=== PATIENT | female | born 1955 | race Caucasian/White ===

== ENCOUNTER 2021-11-02 00:44 | Inpatient (IN) | payer MEDICARE, OTHER ==
[~2021-11-02] VITALS: Ht 167.6 cm; Wt 72.6 kg
[2021-11-02 01:30] VITALS: BP 87/51
[2021-11-02] MEDS ORDERED: BLOOD SUGAR DIAGNOSTIC 1 EACH STRIP IN ONE (02:00)
[2021-11-02] MEDS ORDERED: MAG HYDROX/AL HYDROX/SIMETH 30 ML UDC PO PRN (02:00)
[2021-11-02] MEDS ORDERED: MAGNESIUM HYDROXIDE 30 ML UDC PO PRN (02:00)
--- NOTE | 2021-11-02 02:27 | NUR ---
GPS RN ADMITTING NOTES: PATIENT ARRIVED THIS UNIT ON A STRETCHER WITH 2 EMT ESCORT. PATIENT IS ON A 5150 HOLD FOR DTS. HOLD WAS PLACED ON 11/01/21 AT 1410. PER HOLD, PATIENT HAS SI WITH A PLAN TO BUY A GUN AND KILL HERSELF. UPON FACE TO FACE EVALUATION, PATIENT IS A/O X3, APPEARS DEPRESSED, FLAT AFFECT,WITHDRAWN, GUARDED, ANXIOUS, COOPERATIVE, SLEEPY AND TIRED. PATIENT [id number]/DL. SKIN ASSESSMENT DONE/SKIN INTACT. PATIENT REFUSED PNEUMONIA VACCINE, PER PATIENT SHE IS VACCINATED BUT FORGOT WHEN. PATIENT IS FULLY VACCINATED WITH MODERNA. PATIENT BELONGINGS WERE INVENTORIED AND CONTRABAND REMOVED AND PLACED IN SUPERVISORS SAFE. NO S/S OF DISTRESS, RESPIRATION EVEN AND UNLABORED WITH EQUAL RISE AND FALL OF THE CHEST, ON ROOM AIR. PATIENT IS UNDER THE PSYCHIATRIC CARE OF DR SIMS AND MEDICAL CARE OF [facility]. PATIENT IS ORIENTED TO STAFF AND UNIT. PATIENT RIGHTS BOOKLET AND PRESCRIPTION MEDICATION GUIDE GIVEN TO PATIENT. PATIENT OFFERED FLUID AND SNACKS TOLERATED. ALL PATIENT CARE NEEDS HAVE BEEN MET ANTICIPATED. PATIENT HAS NO NEED AT THIS TIME. BED IN LOW LOCKED POSITION, SIDE RAILS UP X2 FOR SAFETY. WILL CONTINUE TO MONITOR Q15 FOR SAFETY, MOOD AND BEHAVIOR.
[2021-11-02] MEDS ORDERED: AMLO2.5T2 PO (02:43)
[2021-11-02] MEDS ORDERED: CLON0.5T4 PO (02:43)
[2021-11-02] MEDS ORDERED: CALC-1180 PO (02:43)
[2021-11-02] MEDS ORDERED: DOCU-141 PO (02:43)
[2021-11-02] MEDS ORDERED: GABA-532 PO (02:43)
[2021-11-02] MEDS ORDERED: FLUO40CA8 PO (02:43)
[2021-11-02] MEDS ORDERED: LEVO25TA7 PO (02:43)
[2021-11-02] MEDS ORDERED: LAMO200T2 PO (02:43)
[2021-11-02] MEDS ORDERED: APIX5TAB4 PO (02:43)
[2021-11-02 03:30] VITALS: BP 87/51
[2021-11-02] MEDS ORDERED: ESTR10TA VG (03:30)
[2021-11-02] MEDS ORDERED: PROP20TA7 PO (03:30)
--- NOTE | 2021-11-02 06:57 | NUR ---
GPS RN NOTES: CALLED PATIENT SISTER JOSE C YAN [phone] AT [phone] AND LEFT A MESSAGE. WILL ENDORSE TO AM SHIFT TO FOLLOW UP.
--- NOTE | 2021-11-02 07:04 | NUR ---
GPS RN NOTES: PATIENT SISTER JOSE C YAN @ [phone] INFORMED OF PATIENT ADMISSION
[2021-11-02 08:00] VITALS: BP 94/51
[2021-11-02] MEDS: CALCIUM CARB 600MG /VIT D 1 EACH TABLET PO SCH ×2 (09:29→16:52)
[2021-11-02] MEDS: DOCUSATE SODIUM 100 MG CAPSULE PO SCH (09:29)
[2021-11-02] MEDS: FLUOXETINE HCL 20 MG CAPSULE PO SCH (09:30)
[2021-11-02] MEDS: APIXABAN 5 MG TABLET PO SCH ×2 (09:31→21:28)
[2021-11-02] MEDS: LEVOTHYROXINE SODIUM 25 MCG TABLET PO SCH (09:31)
--- NOTE | 2021-11-02 10:43 | NUR ---
ALIN Initial Discharge Plan: Pt currently resides at home located at [address] [place] [address]; ([phone]). Pt stated that she will be moving in with her sister. ALIN will work with the pt, MD, and treatment team to help coordinate appropriate discharge.
--- NOTE | 2021-11-02 10:44 | NUR ---
ALIN Clinical Note: Pt placed on a 5150 hold for danger to self. Pt brought to the hospital because she had a plan to go buy a gun. Pt currently resides at home located at [address] [place] [address]; ([phone]). Pt stated that she will be moving in with her sister.
--- NOTE | 2021-11-02 10:47 | NUR ---
SW Family Contact: SW attempted to contact pt's sister Manny ([phone]) to gather collateral and discuss treatment plan. Unavailable and SW left a voicemail.
[2021-11-02] MEDS: LORAZEPAM 0.5 MG TABLET PO PRN ×2 (15:01→20:39)
--- NOTE | 2021-11-02 15:01 | NUR ---
GPS RN NOTE: PATIENT RESTLESS AND EXTREMELY ANXIOUS ATIVAN 0.5 MG PO PRN GIVEN PER ORDER WILL CONTINUE MONITORING
[2021-11-02 16:00] VITALS: BP 141/84
--- NOTE | 2021-11-02 19:30 | NUR ---
GPS RN NOTE, RECEIVED PATIENT AWAKE AND IN BED, NO S/S OR COMPLAINTS OF PAIN AT THIS TIME. PATIENT IS DISPLAYING NO S/S OF APPARENT DISTRESS AT THIS TIME. PATIENT BREATHING IS UNLABORED WITH EQUAL RISE AND FALL OF THE CHEST. PATIENT IS ALERT AND ORIENTED X 3 ON ROOM AIR WITH A SPO2 98%. PATIENT IS COMPLIANT WITH MEDICATIONS, ANXIOUS AT TIMES, PARANOID, NEEDY, HYPERVERBAL, FOCUSED ON DISCHARGE, AND COOPERATIVE. PATIENT DENIES SUICIDAL AND HOMICIDAL IDEATIONS AT THIS TIME. PATIENT ASSISTED WITH TURNING AND REPOSITIONING Q2HR AND PRN FOR COMFORT AND CIRCULATION. PATIENT HAS NO NEEDS AT THIS TIME. PATIENT EDUCATED ON THE USE OF THE CALL JUAREZ. PATIENT BED SIDE RAILS UP X 2 FOR SAFETY. PATIENT BED IS LOCKED, LOW, WITH BED ALARM ON. WILL CONTINUE TO MONITOR THIS PATIENT Q15 MINUTES WITH THE HELP OF STAFF TO MAINTAIN SAFETY.
[2021-11-02 20:00] VITALS: BP 126/78
--- NOTE | 2021-11-02 20:40 | NUR ---
GPS RN NOTE, PATIENT HAS A COMPLAINT OF FEELING ANXIOUS AND IS REQUESTING ATIVAN AT THIS TIME. PATIENT VITAL SIGNS ARE STABLE. GAVE ATIVAN 0.5MG PO Q6HR PRN ORDERED. WILL REASSESS FOR ANXIETY AND I WILL CONTINUE TO MONITOR THIS PATIENT WITH THE HELP OF STAFF.
[2021-11-02] MEDS: AMLODIPINE BESYLATE 2.5 MG TABLET PO SCH (21:31)
[2021-11-02] MEDS: ACETAMINOPHEN 325 MG TABLET PO PRN (21:45)
--- NOTE | 2021-11-02 21:47 | NUR ---
GPS RN NOTE, PATIENT HAS A COMPLAINT OF BILATERAL KNEE PAIN AT 7 OUT OF 10 ON THE PAIN SCALE AND IS REQUESTING TYLENOL AT THIS TIME. PATIENT VITAL SIGNS ARE STABLE. GAVE TYLENOL 650MG PO Q6HR PRN ORDERED. WILL REASSESS PAIN AND I WILL CONTINUE TO MONITOR THIS PATIENT WITH THE HELP OF STAFF.
[2021-11-02] MEDS ORDERED: LamoTRIgine 100 MG TABLET PO SCH (22:00)
[2021-11-02] MEDS ORDERED: GABAPENTIN 100 MG CAPSULE PO SCH ×2 (22:00)
[2021-11-03] MEDS: TEMAZEPAM 7.5 MG CAPSULE PO PRN (02:41)
--- NOTE | 2021-11-03 02:43 | NUR ---
GPS RN NOTE, PATIENT HAS A COMPLAINT OF NOT BEING ABLE TO SLEEP AND IS REQUESTING RESTORIL AT THIS TIME. PATIENT VITAL SIGNS ARE STABLE. GAVE RESTORIL 7.5MG PO HS PRN ORDERED. WILL REASSESS FOR INSOMNIA AND I WILL CONTINUE TO MONITOR THIS PATIENT WITH THE HELP OF STAFF.
[2021-11-03 07:54] LABS: CHOLESTEROL 198 mg/dL (<200); HDL CHOLESTEROL 44 mg/dL (40-60); LDL 123 mg/dL (0-99); TRIGLYCERIDES 153 mg/dL (30-150)
[2021-11-03 08:00] VITALS: BP 138/76
--- NOTE | 2021-11-03 08:25 | NUR ---
RN-NOTES PATIENT C/O CHEST PAIN, BP OF 138/76,P87,R 16. NITRO 0.4MG SUB. GIVEN PRN ORDER. WILL CONT. MONITORING.
[2021-11-03] MEDS ORDERED: NITROGLYCERIN 0.4 MG/TAB BOTTLE SL PRN (08:30)
[2021-11-03] MEDS: LORAZEPAM 0.5 MG TABLET PO PRN ×2 (08:33→20:33)
[2021-11-03] MEDS: DOCUSATE SODIUM 100 MG CAPSULE PO SCH (08:33)
[2021-11-03] MEDS: CALCIUM CARB 600MG /VIT D 1 EACH TABLET PO SCH ×2 (08:33→17:04)
[2021-11-03] MEDS: LEVOTHYROXINE SODIUM 25 MCG TABLET PO SCH (08:33)
[2021-11-03] MEDS: FLUOXETINE HCL 20 MG CAPSULE PO SCH (08:33)
--- NOTE | 2021-11-03 08:35 | NUR ---
RN-NOTES PATIENT IN THE NURSE STATION VERY ANXIOUS,INTRUSIVE ,ANGRY AND ARGUING WITH THE STAFF AND MD , REDIRECTED AND ATIVAN 0.5MG P.O GIVEN PRN ORDER. WILL CONT. MONITORING FOR SAFETY AND BEHAVIOR.
[2021-11-03] MEDS: APIXABAN 5 MG TABLET PO SCH ×2 (08:37→21:54)
--- NOTE | 2021-11-03 08:45 | NUR ---
RN-NOTES PATIENT STATED HER CHEST PAIN WAS IMPROVED AFTER THE NITRO GLYCERIN GIVEN.
[2021-11-03 09:37] LABS: ALBUMIN 4.5 g/dL (3.4-5.0); BILIRUBIN,TOTAL 0.2 mg/dL (0.2-1.0); CALCIUM, SERUM 9.1 mg/dL (8.5-10.1); CREATININE 0.8 mg/dL (0.6-1.3); POTASSIUM 4.6 mmol/L (3.5-5.1); TOTAL PROTEIN, SERUM 8.2 g/dL (6.4-8.2)
--- NOTE | 2021-11-03 09:45 | NUR ---
RN-NOTES PATIENT LYING IN BED IN THE ROOM,AWAKE,ALERT X3,CALM,NO ACUTE DISTRESS NOTED.
[2021-11-03] MEDS: ACETAMINOPHEN 325 MG TABLET PO PRN ×2 (09:49→20:33)
--- NOTE | 2021-11-03 09:51 | NUR ---
RN-NOTES PATIENT C/O HEADACHE AND REQUESTING TYLENOL, TYLENOL 650MG P.O GIVEN PRN ORDER. WILL CONT. MONITORING.
--- NOTE | 2021-11-03 10:50 | NUR ---
RN-NOTES PATIENT LAYING IN BED AWAKE,ALERT X3 .NO ACUTE DISTRESS NOTED.STATED TYLENOL HELPS HER HEADACHE.
[2021-11-03 16:00] VITALS: BP 131/79
--- NOTE | 2021-11-03 18:44 | NUR ---
RN-NOTES PATIENT IS VISIBLE IN THE UNIT A/O X3,CALM AND COOPERATIVE AT THIS TIME. ABLE TO MAKE NEEDS KNOWN TO THE STAFF.COMPLIANT WITH MEDICATIONS,NO ACUTE DISTRESS NOTED. AMBULATORY STEADY GAIT. ALL NEEDS ATTENDED AND MET.WILL CONT. MONITORING FOR SAFETY AND BEHAVIOR. WILL ENDORSE TO INCOMING NURSE FOR CONTINUITY OF CARE.
[2021-11-03] MEDS: GABAPENTIN 100 MG CAPSULE PO SCH (21:52)
[2021-11-03] MEDS: LamoTRIgine 100 MG TABLET PO SCH (21:52)
[2021-11-03] MEDS: AMLODIPINE BESYLATE 2.5 MG TABLET PO SCH (21:53)
[2021-11-03] MEDS ORDERED: GABAPENTIN 100 MG CAPSULE PO SCH (22:00)
[2021-11-04] MEDS: LORAZEPAM 0.5 MG TABLET PO PRN (04:01)
[2021-11-04] MEDS: ACETAMINOPHEN 325 MG TABLET PO PRN ×2 (04:13→18:00)
[2021-11-04] MEDS: HYDROCODONE/APAP 5/325MG TABLET PO PRN ×2 (04:52→10:58)
--- NOTE | 2021-11-04 04:55 | NUR ---
GPS RN NOTE, PATIENT HAS A COMPLAINT OF BILATERAL KNEE PAIN AT 8 OUT OF 10 ON THE PAIN SCALE AND IS REQUESTING SOMETHING STRONGER THAN TYLENOL AT THIS TIME. PATIENT VITAL SIGNS ARE STABLE. PAGED [facility] AND IN FORMED AKASH GRAVES OF MY FINDINGS. AKASH GRAVES ORDERED NORCO 5-325 1 TAB PO Q6HR PRN. GAVE NORCO 5-325 1 TAB PO Q6HR PRN. WILL REASSESS PAIN AND I WILL CONTINUE TO MONITOR THIS PATIENT WITH THE HELP OF STAFF.
[2021-11-04] MEDS: LEVOTHYROXINE SODIUM 25 MCG TABLET PO SCH (07:00)
[2021-11-04 08:00] VITALS: BP 99/59
[2021-11-04] MEDS: CALCIUM CARB 600MG /VIT D 1 EACH TABLET PO SCH ×2 (09:00→17:00)
[2021-11-04] MEDS: FLUOXETINE HCL 20 MG CAPSULE PO SCH (09:00)
[2021-11-04] MEDS: DOCUSATE SODIUM 100 MG CAPSULE PO SCH (09:00)
[2021-11-04] MEDS: APIXABAN 5 MG TABLET PO SCH ×2 (09:00→22:03)
--- NOTE | 2021-11-04 10:58 | NUR ---
PT C/O BACK PAIN NORCO 5/325 1 TAB GIVEN WILL CONTINUE TO MONITOR.
[2021-11-04 16:05] VITALS: BP 128/77
--- NOTE | 2021-11-04 16:49 | NUR ---
PATIENT 14 DAYS HOLD COPY GIVEN TO PATIENT .PATIENT ACCEPT IT .WILL CONTINUE TO MONITOR FOR SAFETY Q15 MINUTES .
--- NOTE | 2021-11-04 18:00 | NUR ---
PT C/O BACK PAIN TYLENOL 650MG X 1 TAB GIVEN WILL CONTINUE TO MONITOR.
--- NOTE | 2021-11-04 19:30 | NUR ---
PATIENT IS DISPLAYING NO S/S OF APPARENT DISTRESS AT THIS TIME. PATIENT BREATHING IS UNLABORED WITH EQUAL RISE AND FALL OF THE CHEST. PATIENT IS ALERT AND ORIENTED X 3 ON ROOM AIR WITH A SPO2 99%. PATIENT IS COMPLIANT WITH MEDICATIONS, ANXIOUS AT TIMES, PARANOID, NEEDY, HYPERVERBAL, FOCUSED ON DISCHARGE, AND COOPERATIVE. PATIENT DENIES SUICIDAL AND HOMICIDAL IDEATIONS AT THIS TIME. PATIENT ASSISTED WITH TURNING AND REPOSITIONING Q2HR AND PRN FOR COMFORT AND CIRCULATION. PATIENT HAS NO NEEDS AT THIS TIME. PATIENT EDUCATED ON THE USE OF THE CALL JUAREZ. PATIENT BED SIDE RAILS UP X 2 FOR SAFETY. PATIENT BED IS LOCKED, LOW, WITH BED ALARM ON. WILL CONTINUE TO MONITOR THIS PATIENT Q15 MINUTES WITH THE HELP OF STAFF TO MAINTAIN SAFETY.
[2021-11-04 20:08] VITALS: BP 139/80
[2021-11-04] MEDS: LamoTRIgine 100 MG TABLET PO SCH (22:02)
[2021-11-04] MEDS: GABAPENTIN 100 MG CAPSULE PO SCH (22:02)
[2021-11-04] MEDS: AMLODIPINE BESYLATE 2.5 MG TABLET PO SCH (22:02)
[2021-11-05] MEDS: TEMAZEPAM 7.5 MG CAPSULE PO PRN (01:21)
--- NOTE | 2021-11-05 01:23 | NUR ---
GPS RN NOTE, PATIENT HAS A COMPLAINT OF NOT BEING ABLE TO SLEEP AND IS REQUESTING RESTORIL AT THIS TIME. PATIENT VITAL SIGNS AR STABLE. GAVE RESTORIL 7.5MG PO HS PRN ORDERED. WILL REASSESS FOR INSOMNIA AND I WILL CONTINUE TO MONITOR THIS PATIENT WITH THE HELP OF STAFF.
[2021-11-05 08:00] VITALS: BP 114/83
[2021-11-05] MEDS: LEVOTHYROXINE SODIUM 25 MCG TABLET PO SCH (08:49)
[2021-11-05] MEDS: CALCIUM CARB 600MG /VIT D 1 EACH TABLET PO SCH ×2 (08:49→16:58)
[2021-11-05] MEDS: DOCUSATE SODIUM 100 MG CAPSULE PO SCH (08:49)
[2021-11-05] MEDS: FLUOXETINE HCL 20 MG CAPSULE PO SCH (08:49)
[2021-11-05] MEDS: APIXABAN 5 MG TABLET PO SCH ×2 (08:54→21:26)
--- NOTE | 2021-11-05 09:36 | NUR ---
RN-CO: PATIENT IS VISIBLE IN THE UNIT, WITH RESTLESSNESS. SHE IS PARANOID AND THINKING ABOUT THE FBI IS TRYING TO FOLLOW HER. SHE NEEDS REDIRECTION BUT SHE TOOK HER MEDICATIONS. I WILL CONTINUE TO MONITOR.
[2021-11-05 16:00] VITALS: BP 104/69
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
[2021-11-05 20:00] VITALS: BP 100/60
[2021-11-05] MEDS: ACETAMINOPHEN 325 MG TABLET PO PRN (21:23)
[2021-11-05] MEDS: LamoTRIgine 100 MG TABLET PO SCH (21:24)
[2021-11-05] MEDS: GABAPENTIN 100 MG CAPSULE PO SCH (21:24)
--- NOTE | 2021-11-05 21:35 | NUR ---
GPS RN NOTES: PATIENT C/O KNEE PAIN. TYLENOL 650MG GIVEN PO AT 2122. WILL CONTINUE TO MONITOR.
--- NOTE | 2021-11-05 21:55 | NUR ---
GPS RN NOTES: WEEKLY SKIN ASSESSMENT DONE, SKIN INTACT.
[2021-11-05] MEDS: AMLODIPINE BESYLATE 2.5 MG TABLET PO SCH (22:00)
[2021-11-05] MEDS: HYDROCODONE/APAP 5/325MG TABLET PO PRN (23:49)
--- NOTE | 2021-11-05 23:51 | NUR ---
GPS RN NOTES: PATIENT C/O BILATERAL KNEE PAIN. NORCO 5MG/325MG GIVEN PO AT 2349. WILL CONTINUE TO MONITOR.
--- NOTE | 2021-11-06 06:40 | NUR ---
GPS RN CLOSING NOTES: PATIENT IS CURRENTLY SLEEPING. PATIENT SLEPT 7HRS THIS SHIFT. NO S/S OF DISTRESS. RESPIRATION EVEN AND UNLABORED WITH EQUAL RISE AND FALL OF THE CHEST, ON ROOM AIR. ALL PATIENT CARE NEEDS HAVE BEEN MET ANTICIPATED. WILL CONTINUE TO MONITOR Q15 FOR SAFETY, MOOD AND BEHAVIOR AND ENDORSE TO AM SHIFT.
[2021-11-06] MEDS: LEVOTHYROXINE SODIUM 25 MCG TABLET PO SCH (07:21)
[2021-11-06 08:00] VITALS: BP 126/72
[2021-11-06] MEDS: FLUOXETINE HCL 20 MG CAPSULE PO SCH (09:52)
[2021-11-06] MEDS: DOCUSATE SODIUM 100 MG CAPSULE PO SCH (09:52)
[2021-11-06] MEDS: CALCIUM CARB 600MG /VIT D 1 EACH TABLET PO SCH ×2 (09:52→17:51)
[2021-11-06] MEDS: APIXABAN 5 MG TABLET PO SCH ×2 (09:57→21:39)
--- NOTE | 2021-11-06 10:53 | NUR ---
Neighbor Contact: With patient's permission, she allowed this aligner typewriter to contact her neighbor Last ([phone]). SW attempted to contact and was unavailable. SW left a voicemail.
--- NOTE | 2021-11-06 13:56 | NUR ---
ALIN Family Contact: SW spoke with pt's step sister Manny ([phone]) to gather collateral. She stated that she is pt's step sister. She reported that she currently has pt's items and car at home and that it is all safe. She reported that she is unsure if pt has an existing apartment.
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
[2021-11-06 16:00] VITALS: BP 115/59
[2021-11-06] MEDS: ACETAMINOPHEN 325 MG TABLET PO PRN (17:51)
--- NOTE | 2021-11-06 19:52 | NUR ---
GPS RN OPENING NOTES: RECEIVED PATIENT IN BED, AWAKE, A/O X2-3. APPEARS DEPRESSED, PASSIVE, GUARDED, DISORGANIZED. PATIENT ENCOURAGED TO VERBALIZE FEELINGS. PATIENT REQUESTED SHE WANTS TO SHOWER. PATIENT ASSISTED TO SHOWER WITH ASSISTANCE FROM RECREATION OFFICER. NO S/S OF DISTRESS. RESPIRATION EVEN AND UNLABORED WITH EQUAL RISE AND FALL OF THE CHEST, ON ROOM AIR. OFFERED FLUID AND SNACKS TOLERATED. BED IN LOW LOCKED POSITION, CALL JUAREZ WITHIN REACH. WILL CONTINUE TO MONITOR Q15 FOR MOOD, SAFETY AND BEHAVIOR.
[2021-11-06 20:00] VITALS: BP 122/68
[2021-11-06] MEDS: LamoTRIgine 100 MG TABLET PO SCH (21:39)
[2021-11-06] MEDS: GABAPENTIN 100 MG CAPSULE PO SCH (21:39)
[2021-11-06] MEDS: AMLODIPINE BESYLATE 2.5 MG TABLET PO SCH (21:40)
[2021-11-06] MEDS: TEMAZEPAM 7.5 MG CAPSULE PO PRN (22:57)
--- NOTE | 2021-11-06 23:01 | NUR ---
GPS RN NOTES: PATIENT REQUESTED FOR SLEEP MEDICATION. RESTORIL 7.4MG GIVEN PO AT 2257. WILL CONTINUE TO MONITOR.
--- NOTE | 2021-11-07 07:07 | NUR ---
GPS RN CLOSING NOTES: PATIENT IS CURRENTLY SLEEPING. PATIENT SLEPT 4HRS THIS SHIFT. NO S/S OF DISTRESS. RESPIRATION EVEN AND UNLABORED WITH EQUAL RISE AND FALL OF THE CHEST, ON ROOM AIR. ALL PATIENT CARE NEEDS HAVE BEEN MET ANTICIPATED. WILL CONTINUE TO MONITOR Q15 FOR SAFETY, MOOD AND BEHAVIOR AND ENDORSE TO AM SHIFT.
[2021-11-07] MEDS: LEVOTHYROXINE SODIUM 25 MCG TABLET PO SCH (07:51)
[2021-11-07 08:00] VITALS: BP 135/88
[2021-11-07] MEDS: FLUOXETINE HCL 20 MG CAPSULE PO SCH (08:09)
[2021-11-07] MEDS: CALCIUM CARB 600MG /VIT D 1 EACH TABLET PO SCH ×2 (08:09→16:24)
[2021-11-07] MEDS: DOCUSATE SODIUM 100 MG CAPSULE PO SCH (08:09)
[2021-11-07] MEDS: APIXABAN 5 MG TABLET PO SCH ×2 (08:12→21:45)
--- NOTE | 2021-11-07 09:46 | NUR ---
ALIN Note: SW spoke with patient's neighbor Last ([phone]) and verified that pt has an apartment and confirmed her address: [address] [place], [place] [address] [address]; ([phone]).
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
[2021-11-07] MEDS: LORAZEPAM 0.5 MG TABLET PO PRN (12:54)
--- NOTE | 2021-11-07 12:55 | NUR ---
RN-CO: ATIVAN 0.5 MG PO WAS REQUESTED FOR C/O ANXIETY, MB RESTLESSNESS .
[2021-11-07 16:12] VITALS: BP 94/57
[2021-11-07] MEDS: HYDROCODONE/APAP 5/325MG TABLET PO PRN ×2 (17:34→17:40)
--- NOTE | 2021-11-07 17:34 | NUR ---
RN-CO: NORCO 1 TAB GIVEN FOR C/O 10/20 PAIN ON NATALIE KNEES. Addendum: 11/07/21 at 1740 by KALE WELCH RN RN-CO: PT CHANGED HER MIND AND REFUSED NORCO. SHE PREFERS TYLENOL.
[2021-11-07] MEDS: ACETAMINOPHEN 325 MG TABLET PO PRN (17:41)
--- NOTE | 2021-11-07 17:44 | NUR ---
RN-CO: TYLENOL 650 MG PO GIVEN FOR C/O KNEE PAIN 10/20.
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
[2021-11-07 20:28] VITALS: BP 122/62
[2021-11-07] MEDS: LamoTRIgine 100 MG TABLET PO SCH (21:46)
[2021-11-07] MEDS: AMLODIPINE BESYLATE 2.5 MG TABLET PO SCH (21:48)
[2021-11-07] MEDS: GABAPENTIN 100 MG CAPSULE PO SCH (21:49)
[2021-11-08] MEDS: TEMAZEPAM 7.5 MG CAPSULE PO PRN ×2 (01:06→23:37)
--- NOTE | 2021-11-08 01:06 | NUR ---
GPS RN NOTES: PATIENT REQUESTED FOR SLEEP MEDICATION. RESTORIL 7.4MG GIVEN PO AT 0106. WILL CONTINUE TO MONITOR.
--- NOTE | 2021-11-08 06:50 | NUR ---
GPS RN CLOSING NOTES: PATIENT IS CURRENTLY IN BED, AWAKE, A/OX3. PATIENT SLEPT 8HRS THIS SHIFT. NO S/S OF DISTRESS. RESPIRATION EVEN AND UNLABORED WITH EQUAL RISE AND FALL OF THE CHEST, ON ROOM AIR. ALL PATIENT CARE NEEDS HAVE BEEN MET ANTICIPATED. WILL CONTINUE TO MONITOR Q15 FOR SAFETY, MOOD AND BEHAVIOR AND ENDORSE TO AM SHIFT.
[2021-11-08 08:00] VITALS: BP 106/75
[2021-11-08] MEDS: LEVOTHYROXINE SODIUM 25 MCG TABLET PO SCH (08:24)
[2021-11-08] MEDS: CALCIUM CARB 600MG /VIT D 1 EACH TABLET PO SCH ×2 (08:24→16:55)
[2021-11-08] MEDS: DOCUSATE SODIUM 100 MG CAPSULE PO SCH (08:24)
[2021-11-08] MEDS: FLUOXETINE HCL 20 MG CAPSULE PO SCH (08:25)
[2021-11-08] MEDS: APIXABAN 5 MG TABLET PO SCH ×2 (08:27→21:37)
[2021-11-08] MEDS: OLANZAPINE 5 MG TABLET PO SCH (08:28)
--- NOTE | 2021-11-08 08:28 | NUR ---
RN-CO: PT REFUSED ZYPREXA SHE STATED " I HAD TARDIVE DYSKINESIA BEC OF THAT."
--- NOTE | 2021-11-08 10:00 | NUR ---
RN-CO: PT OPTED TO TRY THE PO ATIVAN FIRST.
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
[2021-11-08] MEDS: LORAZEPAM 0.5 MG TABLET PO PRN ×3 (10:07→22:27)
--- NOTE | 2021-11-08 10:08 | NUR ---
RN-CO: ATIVAN 0.5 MG PO GIVEN FOR AGITATION MB SHAKING OF HER HANDS.
--- NOTE | 2021-11-08 10:15 | NUR ---
Court Notification: Pt does not want to contact anyone for her 4839 hearing.
--- NOTE | 2021-11-08 10:15 | NUR ---
Court Hearing: Patient's court hearing for 1120 was today and it was upheld for GD.
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
[2021-11-08] MEDS: ACETAMINOPHEN 325 MG TABLET PO PRN (14:34)
--- NOTE | 2021-11-08 15:27 | NUR ---
RN-CO: NOTED PT HAS POOR IMPULSE CONTROL AND MANIPULATIVE TO STAFF. SHE YELLED AT THE PULP PILER AND CURSED HER. ATIVAN PO WAS GIVEN.
[2021-11-08 16:00] VITALS: BP 107/63
--- NOTE | 2021-11-08 16:55 | NUR ---
rn-co: daren requested for anxiety and restlessness.
--- NOTE | 2021-11-08 19:30 | NUR ---
GPS RN NOTE, RECEIVED PATIENT AWAKE AND IN BED, HAS A COMPLAINT OF BILABIAL KNEE PAIN AT A 6 OUT 10 ON THE PAIN SCALE. PATIENT IS TAKING ORAL PAIN MEDICATION FOR THIS PAIN. PATIENT IS DISPLAYING NO S/S OF APPARENT DISTRESS AT THIS TIME. PATIENT BREATHING IS UNLABORED WITH EQUAL RISE AND FALL OF THE CHEST. PATIENT IS ALERT AND ORIENTED X 3 ON ROOM AIR WITH A SPO2 98%. PATIENT IS COMPLIANT WITH MEDICATIONS, ANXIOUS AT TIMES, PARANOID, DELUSIONAL, NEEDY, HYPERVERBAL, FOCUSED ON DISCHARGE, AND COOPERATIVE. PATIENT DENIES SUICIDAL AND HOMICIDAL IDEATIONS AT THIS TIME. PATIENT ASSISTED WITH TURNING AND REPOSITIONING Q2HR AND PRN FOR COMFORT AND CIRCULATION. PATIENT HAS NO NEEDS AT THIS TIME. PATIENT EDUCATED ON THE USE OF THE CALL JUAERZ. PATIENT BED SIDE RAILS UP X 2 FOR SAFETY. PATIENT BED IS LOCKED, LOW, WITH BED ALARM ON. WILL CONTINUE TO MONITOR THIS PATIENT Q15 MINUTES WITH THE HELP OF STAFF TO MAINTAIN SAFETY.
[2021-11-08] MEDS: HYDROCODONE/APAP 5/325MG TABLET PO PRN (19:49)
--- NOTE | 2021-11-08 19:49 | NUR ---
GPS RN NOTE, PATIENT HAS A COMPLAINT OF BILATERAL KNEE PAIN AT 6 OUT OF 10 ON THE PAIN SCALE AND IS REQUESTING NORCO AT THIS TIME. PATIENT VITAL SIGNS ARE STABLE. GAVE NORCO [phone] TAB PO Q6HR PRN ORDERED. WILL REASSESS PAIN AND I WILL CONTINUE TO MONITOR THIS PATIENT WITH THE HELP OF STAFF.
[2021-11-08 20:00] VITALS: BP 120/67
[2021-11-08] MEDS: GABAPENTIN 100 MG CAPSULE PO SCH (21:35)
[2021-11-08] MEDS: LamoTRIgine 100 MG TABLET PO SCH (21:35)
[2021-11-08] MEDS: AMLODIPINE BESYLATE 2.5 MG TABLET PO SCH (21:36)
[2021-11-09] MEDS: LORAZEPAM 0.5 MG TABLET PO PRN ×3 (05:02→21:46)
[2021-11-09] MEDS: ACETAMINOPHEN 325 MG TABLET PO PRN (05:15)
--- NOTE | 2021-11-09 05:15 | NUR ---
GPS RN NOTE, PATIENT HAS A COMPLAINT OF BILATERAL KNEE PAIN AT 3 OUT OF 10 ON THE PAIN SCALE AND IS REQUESTING TYLENOL AT THIS TIME. PATIENT VITAL SIGNS ARE STABLE. GAVE TYLENOL 650MG PO Q6HR PRN ORDERED. WILL REASSESS PAIN AND I WILL CONTINUE TO MONITOR THIS PATIENT WITH THE HELP OF STAFF.
[2021-11-09 08:00] VITALS: BP 119/73
[2021-11-09] MEDS: DOCUSATE SODIUM 100 MG CAPSULE PO SCH (08:40)
[2021-11-09] MEDS: FLUOXETINE HCL 20 MG CAPSULE PO SCH (08:40)
[2021-11-09] MEDS: LEVOTHYROXINE SODIUM 25 MCG TABLET PO SCH (08:40)
[2021-11-09] MEDS: CALCIUM CARB 600MG /VIT D 1 EACH TABLET PO SCH ×2 (08:40→16:09)
[2021-11-09] MEDS: OLANZAPINE 5 MG TABLET PO SCH ×2 (08:40→08:47)
[2021-11-09] MEDS: APIXABAN 5 MG TABLET PO SCH ×2 (08:41→21:40)
--- NOTE | 2021-11-09 09:40 | NUR ---
RN Notes: Received pt.awake in her room, responsive to staffs, no distress and no agitation noted. Ate 100% for breakfast, refused for zyprexa po,was explained on the importance and still refusing and STAFF PHYSICAL THERAPY ASSISTANT is aware. Pt. is compliant on the rst of the po meds. Encouraged to verbalize feelings and motivated to attend group activity. Needs attended and will continue to monitor for safety.
[2021-11-09] MEDS: HYDROCODONE/APAP 5/325MG TABLET PO PRN ×2 (09:50→16:09)
[2021-11-09 16:00] VITALS: BP 93/60
--- NOTE | 2021-11-09 19:30 | NUR ---
GPS RN NOTE, RECEIVED PATIENT AWAKE AND IN BED, HAS A COMPLAINT OF BILABIAL KNEE PAIN AT A 2 OUT 10 ON THE PAIN SCALE. PATIENT IS TAKING ORAL PAIN MEDICATION FOR THIS PAIN. PATIENT IS DISPLAYING NO S/S OF APPARENT DISTRESS AT THIS TIME. PATIENT BREATHING IS UNLABORED WITH EQUAL RISE AND FALL OF THE CHEST. PATIENT IS ALERT AND ORIENTED X 3 ON ROOM AIR WITH A SPO2 95%. PATIENT IS COMPLIANT WITH MEDICATIONS, ANXIOUS AT TIMES, PARANOID, DELUSIONAL, NEEDY, HYPERVERBAL, FOCUSED ON DISCHARGE, AND COOPERATIVE. PATIENT DENIES SUICIDAL AND HOMICIDAL IDEATIONS AT THIS TIME. PATIENT ASSISTED WITH TURNING AND REPOSITIONING Q2HR AND PRN FOR COMFORT AND CIRCULATION. PATIENT HAS NO NEEDS AT THIS TIME. PATIENT EDUCATED ON THE USE OF THE CALL JUAREZ. PATIENT BED SIDE RAILS UP X 2 FOR SAFETY. PATIENT BED IS LOCKED, LOW, WITH BED ALARM ON. WILL CONTINUE TO MONITOR THIS PATIENT Q15 MINUTES WITH THE HELP OF STAFF TO MAINTAIN SAFETY.
[2021-11-09] MEDS: GABAPENTIN 100 MG CAPSULE PO SCH (21:39)
[2021-11-09] MEDS: AMLODIPINE BESYLATE 2.5 MG TABLET PO SCH (21:39)
[2021-11-09] MEDS: LamoTRIgine 100 MG TABLET PO SCH (21:39)
[2021-11-10] MEDS: ACETAMINOPHEN 325 MG TABLET PO PRN (02:16)
--- NOTE | 2021-11-10 07:46 | NUR ---
SW Discharge Note: Patient will be discharged back home located at [address] [address]; ([phone]). Patient will order uber at 1PM. Patient does not want SW to contact any family members. Patient denies visual/auditory hallucinations. Patient denies suicidal or homicidal ideation. Patient will follow up with (Cytology Technologist) Dr. Ammy Lion located at [facility] [address], [address], [place] [address]; ([phone]). Patient will follow up with (Psychiatrist) Dr. Vivian Leonardo located at [address] [place] [address] [address], [place] [address]; ([phone]).
[2021-11-10 08:00] VITALS: BP 123/75
[2021-11-10] MEDS: LEVOTHYROXINE SODIUM 25 MCG TABLET PO SCH (08:14)
[2021-11-10] MEDS: APIXABAN 5 MG TABLET PO SCH (08:14)
[2021-11-10] MEDS: CALCIUM CARB 600MG /VIT D 1 EACH TABLET PO SCH (08:14)
[2021-11-10] MEDS: FLUOXETINE HCL 20 MG CAPSULE PO SCH (08:14)
[2021-11-10] MEDS: DOCUSATE SODIUM 100 MG CAPSULE PO SCH (08:14)
[2021-11-10] MEDS: OLANZAPINE 5 MG TABLET PO SCH (08:18)
[2021-11-10] MEDS: LORAZEPAM 0.5 MG TABLET PO PRN (08:51)
--- NOTE | 2021-11-10 09:23 | NUR ---
Nabeel King NP gave an order to D/C hold and D/C home and to follow up with psych and medical doctors. Pt. is for discharge with psych prescriptions. Dr. Tinoco made aware of the discharge and provided a prescriptions for 1 month supply. Pt. without distress, denies suicidal and homicidal. Belongings ready and discharge papers ready. Addendum: 11/10/21 at 1422 by GÓMEZ CHEUNG RN Pt. signed the discharge
[2021-11-10] MEDS: HYDROCODONE/APAP 5/325MG TABLET PO PRN (09:52)
--- NOTE | 2021-11-10 14:05 | NUR ---
SW Note: Pt approached this lead technical writer stating to speak to son Antony ([phone]) and SW expressed that she told this lead technical writer she has no family. Pt stated "Yes, I did not want to tell you but I do have a son who lives in [place] and we have not spoken for years". She expressed "I do not know why he wants to speak now or involved in my care".
--- NOTE | 2021-11-10 14:07 | NUR ---
ALIN Family Contact: Per pt's request, SW attempted to speak to pt's son Antony ([phone]) and was concerned of pt's discharge. SW tried to attempt to speak to son Antony but he kept yelling and requested to speak to Track Laying Equipment Operator. SW notified Neda Arrieta to speak to Antony. Meenakshi Red explained to son that pt will be going home today and he was understanding.
--- NOTE | 2021-11-10 14:10 | NUR ---
Pt. left the unit via a taxi and escorted by staff to the lobby with belongings. Pt. left the unit ambulatory and without distress. Pt. was instructed on meds to continue at home and verbalizes understanding and advised to make a follow up with psych and medical doctors. V/S taken: BP 133/68, NE 91, RR 18, temp 97.8 and oxygen sat. 98%.
== END 2021-11-10 14:10 | disposition home or self-care (01) | DRG 885 ==
LOC: GPS 00:44
PROVIDERS: ADMIT Nurse Practitioner Psychiatric/Mental Health; ATTEND Internal Medicine
DX: F31.9 Bipolar disorder, unspecified (principal); R45.851 Suicidal ideations; F41.9 Anxiety disorder, unspecified; E03.9 Hypothyroidism, unspecified; F43.10 Post-traumatic stress disorder, unspecified; I10 Essential (primary) hypertension; I48.91 Unspecified atrial fibrillation; Z62.810 Personal history of physical and sexual abuse in childhood; Z79.01 Long term (current) use of anticoagulants; Z79.899 Other long term (current) drug therapy; Z91.51 Personal history of suicidal behavior; Z91.81 History of falling; M62.81 Muscle weakness (generalized); R07.9 Chest pain, unspecified; R53.83 Other fatigue; F19.10 Other psychoactive substance abuse, uncomplicated; Z88.1 Allergy status to other antibiotic agents; Z88.2 Allergy status to sulfonamides; Z88.8 Allergy status to other drugs, medicaments and biological substances
CPT/HCPCS: 36415; 80053-TC; 80061-TC; 82962-TC; 84484-TC; 87081-TC; 93307-TC